=== PATIENT | female | born 1955 | race Caucasian/White ===

== ENCOUNTER 2024-10-30 09:24 | Emergency (ER) | payer MEDICARE, OTHER ==
[~2024-10-30] VITALS: Ht 160 cm; Wt 94.6 kg
[~2024-10-30 09:24] MED LIST: BACL10TA2 PO
[2024-10-30 12:39] LABS: BILIRUBIN,URINE MODERATE (Neg); CLARITY,URINE CLEAR (Clear); COLOR,URINE YELLOW (Yellow); GLUCOSE, URINE NEGATIVE (Neg); KETONES,URINE 15 mg/dl (Neg); LEUKOCYTE ESTERASE ,URINE NEGATIVE (Neg); NITRITES, URINE NEGATIVE (Neg); OCCULT BLOOD,URINE NEGATIVE (Neg); PH,URINE 5.5 (4.8-8.0); PROTEIN,URINE NEGATIVE (Neg); UA COLLECTION TYPE CLN CATCH MIDSTREAM; UROBILINOGEN,URINE 0.2 E.U/dL (0.2-1.0)
[2024-10-30 12:57] LABS: BASOPHILS # (AUTO) 0.1 X10'3 (0-0.2); BASOPHILS % (AUTO) 0.6 % (0-1); EOSINOPHILS # (AUTO) 0.1 X10'3 (0-0.9); EOSINOPHILS % (AUTO) 0.8 % (0-6); HEMATOCRIT 47.8 % (35.0-45.0); LYMPHOCYTES # (AUTO) 2.4 X10'3 (1.1-4.8); LYMPHOCYTES % (AUTO) 22.8 % (21-51); MEAN CORPUSCULAR HEMOGLOBIN 30.2 PG (27.0-31.0); MEAN CORPUSCULAR HGB CONC 33.5 g/dL (33.0-36.5); MEAN CORPUSCULAR VOLUME 90.3 FL (78-98); MEAN PLATELET VOLUME 7.4 FL (7.4-10.4); MONOCYTES # (AUTO) 1.2 X10'3 (0-0.9); MONOCYTES % (AUTO) 10.8 % (2-12); NEUTROPHILS # (AUTO) 6.9 X10'3 (1.8-7.7); PLATELET COUNT 434 X10'3 (140-440); RED CELL DISTRIBUTION WIDTH 14.8 % (11.5-14.5); WHITE BLOOD COUNT 10.7 X10'3 (4.5-11.0)
[2024-10-30 13:26] LABS: ALANINE AMINOTRANSFERASE 35 U/L (12-78); ALBUMIN 3.7 G/DL (3.4-5.0); ALBUMIN/GLOBULIN RATIO 0.8 (1.1-1.5); ALKALINE PHOSPHATASE 109 IU/L (46-116); ANION GAP 15 (8-16); ASPARTATE AMINO TRANSFERASE 17 U/L (10-37); BILIRUBIN,TOTAL 0.6 MG/DL (0.1-1.0); BLOOD UREA NITROGEN 31 MG/DL (7-18); CHLORIDE 99 MMOL/L (99-107); CREATININE 1.35 MG/DL (0.40-0.90); GLUCOSE 129 MG/DL (70-104); POTASSIUM 3.5 MMOL/L (3.5-5.1); SODIUM 137 MMOL/L (135-145); TOTAL CARBON DIOXIDE 22.9 MMOL/L (24-32); TOTAL PROTEIN 8.4 G/DL (6.4-8.2); eCRCL 33 ML/MIN; eGFR 39 ML/MIN
[2024-10-30 14:21] VITALS: BP 132/69; PULSE 98; RESP 18; TEMP 98.4; O2SAT 99
== END 2024-10-30 14:24 | disposition home or self-care (01) ==
LOC: ER 09:24
DX: M54.50 Low back pain, unspecified (principal); E11.9 Type 2 diabetes mellitus without complications
CPT/HCPCS: 36415; 80053; 81003; 85025; 99283

== ENCOUNTER 2025-07-02 10:54 | Emergency (ER) | payer MEDICARE, OTHER ==
[~2025-07-02] VITALS: Ht 154.9 cm; Wt 95.4 kg
[2025-07-02 11:11] VITALS: TEMP 97.2
--- NOTE | 2025-07-02 13:19 | Physician Documentation ---
History of Present Illness General Chief Complaint: Back Pain Stated Complaint: BACK PAIN Time Seen by MD: 13:17 OK to notify your PCP?: No Source: patient, RN notes reviewed Mode of Arrival: POV Exam Limitations: no limitations History of Present Illness Initial Comments 69 old female, with a history of arthritis, presents complaining of right lower back/flank pain beginning three days ago. Pain is tolerable while sitting but increases to 10/10 when she stands up. She has been ambulating with a cane. She has taken aleve and baclofen without improvement. She denies history of similar symptoms. She denies any urinary symptoms, numbness/tingling in her legs, bowel or bladder incontinence, urinary retention, or fever. Medication Reconciliation Allergies: Coded Allergies: No Known Allergies (Unverified , 07/02/25) Scheduled Baclofen (Baclofen), 1 TAB PO Q8H Past Medical History Past Medical History: *MUSCULOSKELETAL*, Arthritis Past Surgical History: noncontributory Drug Use: none Lives In: Home Review of Systems All Other Systems at this time: Reviewed and Negative ROS right flank pain as well as other positive symptoms as stated above in the HPI, otherwise all systems are reviewed and negative. Physical Exam Physical Exam Vital Signs: RN Vital Signs have been reviewed: Yes, Temperature: 97.2, Source: Oral, Heart Rate: 94, Respiratory Rate: 18, BP: 148/95, Pulse Oximetry: 97, Weight: 95.400 Oxygen Flow Rate: 0 Pulse Oximetry Reflects: adequate oxygenation Physical Exam VITALS: Reviewed and as above. GENERAL: Alert, no apparent distress. HEENT: Normocephalic, atraumatic, PERRL, EOMI, dry mucosa. RESPIRATORY: Lungs clear, normal breath sounds, no respiratory distress. CHEST: No accessory muscle use, no retractions CV: Regular rate, rhythm, no edema, no murmur, No: JVD GI: Soft, non-tender, bowels sounds present, no rebound, guarding, or rigidity BACK: Right paraspinal tenderness at the level of L3-L4. No CVA tenderness, or swelling MUSCULOSKELETAL: No deformities, no edema SKIN: Warm and dry, no rash NEURO: Oriented x4, No motor or sensory deficit PSYCH: Normal mood and affect, no agitation Progress Progress Note 1725: Reevaluation: Patient feeling improved after medications. Comfortable with the plan for discharge. Results/Orders Reviewed/noted all lab results: Yes Results/Orders Medications Received in ER Medications (Trade) Dose Ordered Sig/Carrie Route PRN Reason Start Time Stop Time Status Last Admin Dose Admin (Toradol injection) 15 mg ONCE ONCE IM 07/02/25 13:40 07/02/25 13:41 DC 07/02/25 13:48 15 MG (Norflex inj.) 30 mg ONCE ONCE IM 07/02/25 13:40 07/02/25 13:41 DC 07/02/25 13:49 30 MG Vital Signs 07/02/25 07/02/25 07/02/25 07/02/25 11:11 11:41 11:44 12:43 Temp 97.2 Pulse 105 67 94 Resp 20 16 16 18 B/P (MAP) 162/85 168/100 (122) 148/95 (112) Pulse Ox 98 97 97 O2 Flow Rate 0 0 07/02/25 07/02/25 13:47 15:15 Pulse 99 79 Resp 18 17 B/P (MAP) 148/91 (110) 161/81 (107) Pulse Ox 96 97 O2 Flow Rate 0 0 Laboratory Tests Test 07/02/25 14:57 White Blood Count 12.2 H Red Blood Count 5.47 Hemoglobin 16.3 H Hematocrit 48.8 H Mean Corpuscular Volume 89.2 Mean Corpuscular Hemoglobin 29.8 Mean Corpuscular Hemoglobin Concent 33.4 Red Cell Distribution Width 15.5 H Platelet Count 412 Mean Platelet Volume 7.3 L Neutrophils (%) (Auto) 81.2 H Lymphocytes (%) (Auto) 11.0 L Monocytes (%) (Auto) 6.9 Eosinophils (%) (Auto) 0.3 Basophils (%) (Auto) 0.6 Neutrophils # (Auto) 9.9 H Lymphocytes # (Auto) 1.3 Monocytes # (Auto) 0.8 Eosinophils # (Auto) 0.0 Basophils # (Auto) 0.1 CBC Comment Prothrombin Time 11.9 INR International Normalized Ratio 1.2 Coagulation Comments Sodium Level 137 Potassium Level 3.9 Chloride Level 98 L Carbon Dioxide Level 24.4 Anion Gap 15 Blood Urea Nitrogen 22 H Creatinine 1.22 H Estimated GFR/1.73 m2 44 BUN/Creatinine Ratio 18.0 Glucose Level 144 H Calcium Level 9.6 Total Bilirubin 0.9 Aspartate Amino Transf (AST/SGOT) 21 Alanine Aminotransferase (ALT/SGPT) 34 Alkaline Phosphatase 118 H Total Protein 8.2 Albumin 3.9 Globulin 4.3 Albumin/Globulin Ratio 0.9 L Lipase 38 Chemistry Comments EKG/XRAY/CT/US/VASC/MRI CT : Interpreted By: radiologist CT: abdomen/pelvis With Contrast?: No Impression Procedure: CT CT ABDOMEN [facility] Study Date and Requested Time: 07/02/2025 01:53 PM History: back pain Comparison: None Dose: CTDI: 31.85 mGy DLP: 1802.14 mGycm Technique: Multiplanar images obtained through the abdomen and pelvis without contrast Findings: Bibasilar atelectasis. Partially visualized heart is unremarkable. Mild hepatomegaly. Otherwise, liver, spleen, pancreas and adrenal glands unremarkable. Large gallstone within the gallbladder with no evidence of gallbladder wall thickening or pericholecystic free fluid. 1.7 cm left renal cysts. 1.1 cm exophytic left renal upper pole soft tissue density lesion. 0.8 cm hyperdense right renal upper pole lesion which may represent a hemorrhagic / proteinaceous cyst . Otherwise, kidneys, ureters and urinary bladder are unremarkable. Possible 1.2 cm uterine fibroid. Otherwise, uterus and adnexa unremarkable. Stomach is unremarkable. Small bowel loops unremarkable. Appendix is unremarkable. Sigmoid diverticulosis without diverticulitis. Small to moderate amount of fecal material within the colon. No evidence of intraperitoneal free fluid, or free air. No evidence of aortic aneurysm . No significant lymphadenopathy. The soft tissues are unremarkable. Small fat containing umbilical hernia. Partially calcified injection granuloma of the right lower back. No destructive osseous lesions are noted. Multilevel moderate degenerative changes of the lumbar spine. Multilevel anterior bridging osteophytes of the lower thoracic and upper lumbar spine. Impression: No evidence of acute abdominopelvic abnormality. 1.1 cm exophytic left renal upper pole soft tissue density lesion. Renal ultrasound is recommended for further evaluation. Large gallstone within the gallbladder with no CT evidence of acute cholecystitis. Ultrasound may be considered for further evaluation if clinically indicated. Reviewed by myself. Medical Decision Making Additional info obtained from: old records (Seen in 2023 for low back pain) Departure Time of Disposition: 17:27 Disposition: 01 HOME / SELF CARE / HOMELESS Impression: Primary Impression: Low back pain Qualified Codes: M54.50 - Low back pain, unspecified Condition: Stable Discharge Instructions: Acute Back Pain, Adult Additional Instructions: Take tramadol as prescribed for pain. It follow up with your regular doctor. Return to the ER for worsening pain, fever, vomiting, or other concerns. Education Educated: Patient Educated regarding: diagnosis, treatment, need for follow up Signature Scribe Signature: Scribed for Benny Obrien MD by Saran Hahn . 07/02/25 13:40 BENNY OBRIEN MD Jul 02, 2025 13:19 SARAN THOMSON Jul 02, 2025 13:45
[2025-07-02] MEDS: ketorolac trometh 15mg/ml vial 15 MG/ML ML IM ONE (13:48)
[2025-07-02] MEDS: orphenadrine citrate 60mg/2ml inj. IM ONE (13:49)
--- NOTE | 2025-07-02 14:49 | RADIOLOGY REPORT ---
Procedure: CT CT ABDOMEN [facility] Study Date and Requested Time: 01:53 PM History: back pain Comparison: None Dose: CTDI: 31.85 mGy DLP: 1802.14 mGycm Technique: Multiplanar images obtained through the abdomen and pelvis without contrast Findings: Bibasilar atelectasis. Partially visualized heart is unremarkable. Mild hepatomegaly. Otherwise, liver, spleen, pancreas and adrenal glands unremarkable. Large gallsto ne within the gallbladder with no evidence of gallbladder wall thickening or pericholecystic free flu id. 1.7 cm left renal cysts. 1.1 cm exophytic left renal upper pole soft tissue density lesion. 0.8 cm hy perdense right renal upper pole lesion which may represent a hemorrhagic / proteinaceous cyst . Other alonso, kidneys, ureters and urinary bladder are unremarkable. Possible 1.2 cm uterine fibroid. Otherw ise, uterus and adnexa unremarkable. Stomach is unremarkable. Small bowel loops unremarkable. Appendix is unremarkable. Sigmoid diverticul osis without diverticulitis. Small to moderate amount of fecal material within the colon. No evidence of intraperitoneal free fluid, or free air. No evidence of aortic aneurysm . No significant lymphadenopathy. The soft tissues are unremarkable. Small fat containing umbilical hernia. Partially calcified injecti on granuloma of the right lower back. No destructive osseous lesions are noted. Multilevel moderate d egenerative changes of the lumbar spine. Multilevel anterior bridging osteophytes of the lower thorac ic and upper lumbar spine. Impression: No evidence of acute abdominopelvic abnormality. 1.1 cm exophytic left renal upper pole soft tissue density lesion. Renal ultrasound is recommended f or further evaluation. Large gallstone within the gallbladder with no CT evidence of acute cholecystitis. Ultrasound may be considered for further evaluation if clinically indicated.
[2025-07-02 15:06] LABS: MEAN PLATELET VOLUME 7.3 FL (7.4-10.4); RED CELL DISTRIBUTION WIDTH 15.5 % (11.5-14.5)
[2025-07-02 15:15] LABS: INR 1.2 INR
[2025-07-02 15:27] LABS: CREATININE 1.22 MG/DL (0.40-0.90); TOTAL CARBON DIOXIDE 24.4 MMOL/L (24-32); eCRCL 33 ML/MIN; eGFR 44 ML/MIN
[2025-07-02] MEDS ORDERED: TRAM50TA2 PO (17:27)
[2025-07-02 17:51] VITALS: BP 146/96; PULSE 87; RESP 18; O2SAT 96
== END 2025-07-02 17:53 | disposition home or self-care (01) ==
LOC: ER 10:55
DX: M54.50 Low back pain, unspecified (principal); M19.90 Unspecified osteoarthritis, unspecified site; Z79.899 Other long term (current) drug therapy
CPT/HCPCS: 36415; 74176; 80053; 83690; 85025; 85610; 96372; 99285; J1885; J2360